=== PATIENT | female | born 1980 | race Caucasian/White ===

== ENCOUNTER 2018-03-14 10:17 | Emergency (ER) | payer MEDICAID ==
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
== END 2018-03-14 11:41 | disposition home or self-care (01) ==
LOC: ER 10:17
DX: K05.219 Aggressive periodontitis, localized, unspecified severity (principal); K02.9 Dental caries, unspecified
CPT/HCPCS: 99283; 96372; J1885; Z7502